=== PATIENT | male | born 1975 | race Caucasian/White ===

== ENCOUNTER 2016-06-23 22:58 | Emergency (ER) | payer MEDICAID ==
[~2016-06-23 22:58] MED LIST: CLINDAMYCIN HC300 MG PO; DEPLUD PO; DOK PLUS PO; HALOPERIDOL10 MG PO; HALOPERIDOL5 MG PO; LAC PO; LEVAQUIN750 MG PO; LORAZEPAM1 MG PO; LORAZEPAM2 MG PO; OYSTER SHELL C500 M3 PO; PHEDML PO; POLYETHYLENE GL1 PO1 PO; POVIDONE IODINE TP; QUETIAPINE FUM300 MG PO; RANITIDINE150 M1 PO; RISPERIDONE3 M2 PO; THICK-IT1 POW PO; TRAZODONE HCL50 MG PO; VITAMIN D32000 I2 PO; ZOCOR40 MG PO
[2016-06-24 00:40] LABS: BASOPHIL % 0.2 % (0-2); PLATELET COUNT 189 x10^3mcL (130-400)
[2016-06-24 00:42] LABS: RED CELL DISTRIBUTION WIDTH 15.1 % (11.5-14.5)
[2016-06-24 01:02] LABS: CALCIUM 9.2 mg/dL (8.5-10.1); CARBON DIOXIDE 23.5 mmol/L (21-32); CHLORIDE SERUM 105 mmol/L (98-107); CREATININE SERUM 0.7 mg/dL (0.7-1.3); GFR1 > 60 mL/min; GLUCOSE SERUM 90 mg/dL (74-106); SODIUM SERUM 138 mmol/L (136-145)
[2016-06-24 01:07] LABS: ALBUMIN 3.4 g/dL (3.4-5.0); ALKALINE PHOSPHATASE 65 U/L (46-116); ALT/SGPT 20 U/L (16-63); AST/SGOT 15 U/L (15-37); BILIRUBIN TOTAL 0.41 mg/dL (0.20-1.00); TOTAL PROTEIN, SERUM 7.6 g/dL (6.4-8.2)
[2016-06-24 01:27] LABS: CREATINE KINASE 36 U/L (39-308)
[2016-06-24 01:48] LABS: CK-MB < 0.5 ng/mL (0-3.6)
[2016-06-24 04:24] VITALS: BP 122/74
== END 2016-06-24 04:24 | disposition home or self-care (01) ==
LOC: ED 22:58
PROVIDERS: Emergency Medicine
DX: J20.9 Acute bronchitis, unspecified (principal); E78.5 Hyperlipidemia, unspecified; K21.9 Gastro-esophageal reflux disease without esophagitis; Z88.0 Allergy status to penicillin
CPT/HCPCS: 36600; 83880; Q0092

== ENCOUNTER 2016-10-29 08:21 | Emergency (ER) | payer MEDICAID ==
[~2016-10-29] VITALS: Ht 154.9 cm; Wt 54.4 kg
[2016-10-29 08:55] VITALS: BP 105/64
== END 2016-10-29 11:12 | disposition home or self-care (01) ==
LOC: ED 08:21
DX: S31.811A Laceration without foreign body of right buttock, initial encounter (principal); K21.9 Gastro-esophageal reflux disease without esophagitis; E78.5 Hyperlipidemia, unspecified; F79 Unspecified intellectual disabilities; F63.9 Impulse disorder, unspecified; W18.30XA Fall on same level, unspecified, initial encounter; Y93.89 Activity, other specified; Y99.8 Other external cause status; Y92.89 Other specified places as the place of occurrence of the external cause
CPT/HCPCS: 90715; J2001

== ENCOUNTER 2016-12-04 10:37 | Emergency (ER) | payer MEDICAID ==
[2016-12-04 13:16] VITALS: BP 114/67
== END 2016-12-04 13:16 | disposition home or self-care (01) ==
LOC: ED 10:37
DX: S00.12XA Contusion of left eyelid and periocular area, initial encounter (principal); F79 Unspecified intellectual disabilities; Z88.0 Allergy status to penicillin; E78.5 Hyperlipidemia, unspecified; K21.9 Gastro-esophageal reflux disease without esophagitis; W05.0XXA Fall from non-moving wheelchair, initial encounter; Y93.89 Activity, other specified; Y92.89 Other specified places as the place of occurrence of the external cause; Y99.8 Other external cause status

== ENCOUNTER 2017-01-16 19:05 | Inpatient (IN) | payer MEDICAID ==
[~2017-01-16] VITALS: Ht 172.7 cm; Wt 58.1 kg
[~2017-01-16 19:05] MED LIST changes: -QUETIAPINE FUM300 MG PO; +SEROQUEL200 MG PO
[2017-01-16 22:16] LABS: BASOPHIL % 0.4 % (0-2); PLATELET COUNT 164 x10^3mcL (130-400); RED CELL DISTRIBUTION WIDTH 13.9 % (11.5-14.5)
[2017-01-16 22:21] LABS: CALCIUM 8.5 mg/dL (8.5-10.1); CARBON DIOXIDE 25.7 mmol/L (21-32); CHLORIDE SERUM 105 mmol/L (98-107); CREATININE SERUM 0.6 mg/dL (0.7-1.3); GFR1 > 60 mL/min; GLUCOSE SERUM 88 mg/dL (74-106); POTASSIUM SERUM 3.6 mmol/L (3.5-5.1); SODIUM SERUM 138 mmol/L (136-145)
[2017-01-16 22:26] LABS: ALKALINE PHOSPHATASE 57 U/L (46-116); ALT/SGPT 35 U/L (16-63); AST/SGOT 25 U/L (15-37); BILIRUBIN TOTAL 0.26 mg/dL (0.20-1.00); TOTAL PROTEIN, SERUM 7.5 g/dL (6.4-8.2)
[2017-01-16 22:27] LABS: ALBUMIN 2.9 g/dL (3.4-5.0)
[2017-01-16] MEDS ORDERED: MEG40 PO (23:59)
[2017-01-17] VITALS (7 sets, daily range): BP systolic 106–128; BP diastolic 62–87
[2017-01-17] MEDS ORDERED: PANTOPRAZOLE SO40 M1 PO
[2017-01-17] MEDS ORDERED: CONSTULOSE10 GM/151 PO
[2017-01-17 00:37] LABS: T3 TOTAL 0.59 ng/mL
[2017-01-17 00:40] LABS: CHOLESTEROL/HDL RATIO 2.3; MAGNESIUM 2.3 mg/dL (1.8-2.4); PHOSPHOROUS 3.5 mg/dL (2.5-4.9)
[2017-01-17 00:49] LABS: FREE T4 0.86 ng/dL (0.76-1.46); FREE THYROXINE INDEX 2.2 ug/dL (1.4-4.5); T4(THYROXINE) 5.6 ug/dL (4.7-13.3)
[2017-01-17 07:26] LABS: CALCIUM 8.4 mg/dL (8.5-10.1); CARBON DIOXIDE 23.7 mmol/L (21-32); CHLORIDE SERUM 108 mmol/L (98-107); CREATININE SERUM 0.6 mg/dL (0.7-1.3); GFR1 > 60 mL/min; GLUCOSE SERUM 78 mg/dL (74-106); MAGNESIUM 2.3 mg/dL (1.8-2.4); PHOSPHOROUS 3.2 mg/dL (2.5-4.9); POTASSIUM SERUM 3.5 mmol/L (3.5-5.1); SODIUM SERUM 141 mmol/L (136-145)
[2017-01-17 07:33] LABS: BASOPHIL % 0.4 % (0-2); PLATELET COUNT 167 x10^3mcL (130-400); RED CELL DISTRIBUTION WIDTH 13.6 % (11.5-14.5)
[2017-01-18 05:54] VITALS: BP 116/68
[2017-01-18 06:57] LABS: BASOPHIL % 0.3 % (0-2); PLATELET COUNT 206 x10^3mcL (130-400)
[2017-01-18 07:09] LABS: CALCIUM 8.6 mg/dL (8.5-10.1); CARBON DIOXIDE 19.5 mmol/L (21-32); CHLORIDE SERUM 106 mmol/L (98-107); CREATININE SERUM 0.7 mg/dL (0.7-1.3); GFR1 > 60 mL/min; GLUCOSE SERUM 69 mg/dL (74-106); POTASSIUM SERUM 3.9 mmol/L (3.5-5.1); SODIUM SERUM 139 mmol/L (136-145)
[2017-01-18 08:10] VITALS: BP 121/77
[2017-01-18 16:36] VITALS: BP 121/77
[2017-01-18 17:58] VITALS: BP 120/84
[2017-01-18 20:02] VITALS: BP 117/78
[2017-01-19 06:10] VITALS: BP 109/63
[2017-01-19 08:32] LABS: CALCIUM 8.7 mg/dL (8.5-10.1); CARBON DIOXIDE 23.3 mmol/L (21-32); CHLORIDE SERUM 110 mmol/L (98-107); CREATININE SERUM 0.8 mg/dL (0.7-1.3); GFR1 > 60 mL/min; GLUCOSE SERUM 99 mg/dL (74-106); POTASSIUM SERUM 3.9 mmol/L (3.5-5.1); SODIUM SERUM 143 mmol/L (136-145)
[2017-01-19 08:35] VITALS: BP 104/61
[2017-01-19 08:58] LABS: BASOPHIL % 0.4 % (0-2); PLATELET COUNT 229 x10^3mcL (130-400); RED CELL DISTRIBUTION WIDTH 14.2 % (11.5-14.5)
[2017-01-19 12:15] VITALS: BP 108/69
[2017-01-19 17:00] VITALS: BP 113/71
[2017-01-19 21:40] VITALS: BP 111/72
[2017-01-20 05:02] VITALS: BP 93/55
[2017-01-20 07:18] LABS: BASOPHIL % 0.7 % (0-2); PLATELET COUNT 243 x10^3mcL (130-400); RED CELL DISTRIBUTION WIDTH 14.1 % (11.5-14.5)
[2017-01-20 07:57] LABS: CALCIUM 8.6 mg/dL (8.5-10.1); CHLORIDE SERUM 109 mmol/L (98-107); CREATININE SERUM 0.8 mg/dL (0.7-1.3); GFR1 > 60 mL/min; GLUCOSE SERUM 89 mg/dL (74-106); POTASSIUM SERUM 4.1 mmol/L (3.5-5.1); SODIUM SERUM 142 mmol/L (136-145)
[2017-01-20 09:52] VITALS: BP 104/68
[2017-01-20 13:57] VITALS: BP 117/70
[2017-01-20 16:38] LABS: microscopic required? NO
[2017-01-20 16:52] LABS: UA SPECIFIC GRAVITY 1.025 (1.005-1.035); urine erythrocyte NEGATIVE (NEGATIVE)
[2017-01-20 21:24] VITALS: BP 112/72
[2017-01-21 05:42] VITALS: BP 107/68
[2017-01-21 06:32] LABS: BASOPHIL % 0.6 % (0-2); PLATELET COUNT 276 x10^3mcL (130-400); RED CELL DISTRIBUTION WIDTH 13.3 % (11.5-14.5)
[2017-01-21 06:40] LABS: CARBON DIOXIDE 20.3 mmol/L (21-32); CHLORIDE SERUM 107 mmol/L (98-107); CREATININE SERUM 0.9 mg/dL (0.7-1.3); GFR1 > 60 mL/min; GLUCOSE SERUM 89 mg/dL (74-106); POTASSIUM SERUM 3.9 mmol/L (3.5-5.1); SODIUM SERUM 139 mmol/L (136-145)
[2017-01-21 09:54] VITALS: BP 110/77
[2017-01-22 06:01] VITALS: BP 106/68
[2017-01-22 06:48] LABS: BASOPHIL % 0.4 % (0-2); PLATELET COUNT 307 x10^3mcL (130-400); RED CELL DISTRIBUTION WIDTH 13.9 % (11.5-14.5)
[2017-01-22 06:52] LABS: MAGNESIUM 2.1 mg/dL (1.8-2.4)
[2017-01-22 09:39] VITALS: BP 90/58
[2017-01-22 14:33] VITALS: BP 90/58
[2017-01-22 18:25] VITALS: BP 114/72
[2017-01-22 21:11] VITALS: BP 111/73
[2017-01-23 05:52] VITALS: BP 110/75
[2017-01-23 07:17] LABS: BASOPHIL % 0.5 % (0-2); PLATELET COUNT 268 x10^3mcL (130-400); RED CELL DISTRIBUTION WIDTH 13.9 % (11.5-14.5)
[2017-01-23 07:25] LABS: CALCIUM 8.8 mg/dL (8.5-10.1); CARBON DIOXIDE 21.3 mmol/L (21-32); CHLORIDE SERUM 108 mmol/L (98-107); CREATININE SERUM 0.8 mg/dL (0.7-1.3); GFR1 > 60 mL/min; GLUCOSE SERUM 80 mg/dL (74-106); POTASSIUM SERUM 4.4 mmol/L (3.5-5.1); SODIUM SERUM 141 mmol/L (136-145)
[2017-01-23] MEDS ORDERED: LEVAQUIN750 MG PO (10:40)
[2017-01-23] MEDS ORDERED: CLINDAMYCIN HC300 MG PO (10:40)
[2017-01-23] MEDS ORDERED: BD LACTINEX1.4 MG PO (10:40)
[2017-01-23 13:53] VITALS: BP 110/75
== END 2017-01-23 18:00 | disposition home health service (06) | DRG 137 ==
LOC: ED 19:05 → DU 23:31 → MU 01-22 11:43
PROVIDERS: Emergency Medicine Emergency Medical Services; Family Medicine Sports Medicine; Student in an Organized Health Care Education/Training Program; ADMIT Family Medicine
DX: J69.0 Pneumonitis due to inhalation of food and vomit (principal); J96.01 Acute respiratory failure with hypoxia; E44.0 Moderate protein-calorie malnutrition; K56.7 Ileus, unspecified; K56.41 Fecal impaction; I10 Essential (primary) hypertension; F79 Unspecified intellectual disabilities; D63.8 Anemia in other chronic diseases classified elsewhere; F72 Severe intellectual disabilities; F63.9 Impulse disorder, unspecified; Z99.3 Dependence on wheelchair; Z68.27 Body mass index [BMI] 27.0-27.9, adult
CPT/HCPCS: 76770; 83880; 84439; 92610-GN; 97110-GP; 97116-GP; 97530-GP; J0132; J1956; J2060; J3490; J7030; J7042; J7620; Q0092; Q9963

== ENCOUNTER 2017-06-26 10:11 | Emergency (ER) | payer MEDICAID ==
[~2017-06-26] VITALS: Ht 154.9 cm; Wt 65.8 kg
[~2017-06-26 10:11] MED LIST changes: +BD LACTINEX1.4 MG PO; +CONSTULOSE10 GM/151 PO; +MEG40 PO; +PANTOPRAZOLE SO40 M1 PO
[2017-06-26 10:17] VITALS: Ht 154.9 cm; Wt 65.8 kg
[2017-06-26 11:02] LABS: BASOPHIL % 0.3 % (0-2); PLATELET COUNT 162 x10^3mcL (130-400)
[2017-06-26 11:06] LABS: CALCIUM 8.6 mg/dL (8.5-10.1); CARBON DIOXIDE 24.8 mmol/L (21-32); CHLORIDE SERUM 109 mmol/L (98-107); CREATININE SERUM 0.7 mg/dL (0.7-1.3); GFR1 > 60 mL/min; GLUCOSE SERUM 89 mg/dL (74-106); POTASSIUM SERUM 3.6 mmol/L (3.5-5.1); SODIUM SERUM 141 mmol/L (136-145)
[2017-06-26 11:09] LABS: ALKALINE PHOSPHATASE 64 U/L (46-116); ALT/SGPT 29 U/L (16-63); AMYLASE 28 U/L (25-115); AST/SGOT 19 U/L (15-37); BILIRUBIN TOTAL 0.3 mg/dL (0.20-1.00); LIPASE 53 IU/L (73-393); TOTAL PROTEIN, SERUM 7.7 g/dL (6.4-8.2)
[2017-06-26 11:10] LABS: ALBUMIN 2.9 g/dL (3.4-5.0); RED CELL DISTRIBUTION WIDTH 15.8 % (11.5-14.5)
[2017-06-26 12:59] VITALS: BP 113/78
== END 2017-06-26 12:59 | disposition home or self-care (01) ==
LOC: ED 10:11
PROVIDERS: Emergency Medicine
DX: E86.0 Dehydration (principal); E78.5 Hyperlipidemia, unspecified; K21.9 Gastro-esophageal reflux disease without esophagitis; Z88.0 Allergy status to penicillin
CPT/HCPCS: 83880; J7030

== ENCOUNTER 2017-07-31 09:41 | Emergency (ER) | payer MEDICAID ==
[~2017-07-31] VITALS: Ht 149.9 cm; Wt 49.9 kg
[2017-07-31 10:13] VITALS: BP 0/00; Ht 149.9 cm; Wt 49.9 kg
== END 2017-07-31 14:11 | disposition expired ==
LOC: ED 09:41
DX: I46.9 Cardiac arrest, cause unspecified (principal); Z88.0 Allergy status to penicillin; E78.5 Hyperlipidemia, unspecified; K21.9 Gastro-esophageal reflux disease without esophagitis